=== PATIENT | female | born 1945 | race Caucasian/White ===

== ENCOUNTER 2019-12-22 14:52 | Inpatient (IN) | payer MEDICARE ==
[~2019-12-22] VITALS: Ht 157.5 cm; Wt 55.5 kg
[~2019-12-22 14:52] MED LIST: ALBU2.5V NEB; ALEN70TA6 PO; AMOX1TAB64 PO; ATOR10TA9 PO; CEPH-368 PO; CHOL10003 PO; FURO20TA3 PO; FURO80TA3 PO; GABA-827 PO; GABA600T7 PO; GLIP10TA13 PO; GLIP5TAB10 PO; HYDR-3245 PO; INSU100I11 SC; IPRA0.2S35 INH; MECL-101 PO; MELA1TAB9 PO; METF500T17 PO; METO-95 PO; METO200T47 PO; NPH,100V SC; QUET25TA5 PO; QUET25TA7 PO; RIVA1TAB PO; RIVA20TA PO; TRAZ-175 PO; URSO250T9 PO; URSO500T9 PO; VENL37.58 PO
--- NOTE | 2019-12-22 15:27 | NUR ---
First contact with pt. Pt c/o generalized weakness x2 days, denies other sx, denies recent sick contacts. Pt A&O to self, place, and date. Pt arousable to her name being called but appears very drowsy and weak when standing to change her clothes. Pt placed in gown, positioned for comfort in bed. Continuous heart, oxygen and BP monitors applied, all safety measures observed. Pt's son at bedside for support, POC discussed.
--- NOTE | 2019-12-22 15:30 | NUR ---
Pt's O2 sat on RA 85%. Pt encouraged to deep breathe and 2L O2 via NC applied with O2 sat increase to 94%.
[2019-12-22 15:41] LABS: BASOPHILS # (AUTO) 0.07 x10^3/uL (0-0.1); BASOPHILS % (AUTO) 1 % (0-1); EOSINOPHILS % (AUTO) 0 % (1-7); LYMPHOCYTES % (AUTO) 13 % (22-44); MD NO; MEAN CORPUSCULAR HEMOGLOBIN 27.4 pg (27.0-34.8); MEAN CORPUSCULAR HGB CONC 31.9 g/dL (32.4-35.8); MEAN CORPUSCULAR VOLUME 86.1 fL (80-100); MEAN PLATELET VOLUME 9.3 fL (7.4-10.4); MONOCYTES # (AUTO) 0.36 x10^3/uL (0.2-0.8); MONOCYTES % (AUTO) 3 % (2-9); NEUTROPHILS # (AUTO) 10.89 x10^3/uL (1.8-6.8); NEUTROPHILS % (AUTO) 84 % (42-75); PLATELET COUNT 122 x10^3/uL (130-400); RED BLOOD COUNT 4.09 x10^6/uL (3.82-5.3); RED CELL DISTRIBUTION WIDTH 15.8 % (9.6-15.2)
[2019-12-22 15:47] LABS: ALBUMIN 2.7 g/dL (3.4-5.0); ANION GAP 8 mmol/L (5-15); CALCIUM 8.5 mg/dL (8.5-10.1); CHLORIDE 100 mmol/L (98-107); CREATININE 1.82 mg/dL (0.55-1.02)
--- NOTE | 2019-12-22 15:55 | NUR ---
DR QUINTERO AT BEDSIDE TO EVAL PT. PT ON MONITORS, SR WITH PACED AT TIMES PER MONITOR. NO ACUTE DISTRESS NOTED. PTS SON AT BEDSIDE.
[2019-12-22] MEDS ORDERED: INSU100V37 SQ (16:01)
[2019-12-22] MEDS ORDERED: MECL-101 PO ×2 (16:01→16:06)
[2019-12-22] MEDS ORDERED: MELA5TAB14 PO (16:01)
--- NOTE | 2019-12-22 16:23 | NUR ---
MINI CATH COMPLETE AFTER EXPLAINING TO PT. PT TAMMIE WELL. PT AND PTS SON UPDATED ON POC.
[2019-12-22 16:40] LABS: MICROSCOPIC INDICATED
[2019-12-22] MEDS ORDERED: AZITHROMYCIN 500 MG in SODIUM CHLORIDE 0.9% 250 ML IV ONE (17:00)
[2019-12-22] MEDS ORDERED: CEFTRIAXONE PMX 1GM/50ML 50 ML IVPB ONE (17:00)
--- NOTE | 2019-12-22 17:30 | NUR ---
IV ABX STARTED. BLOOD CULTURES X2 IN LAB. PT PROVIDED WITH SIPS OF WATER. NO OTHER NEEDS EXPRESSED AT THIS TIME. WAITING FOR FURTHER DISPOSITION.
[2019-12-22] MEDS ORDERED: ESZO3TAB28 PO (18:27)
--- NOTE | 2019-12-22 18:27 | NUR ---
PT ASSISTED TO BSC. WEAK, SBA. TAMMIE WELL. SR PER MONITOR. PTS SON SHOWED RN PHONE WITH RX FOR LUNESTA (INFO NOT PREVIOUSLY PROVIDED) FOR SLEEP. RX PRESCRIBED BY PAIN MED MD. PT AND PTS SON AWARE OF WAITING FOR ROOM ASSIGNMEN.
[2019-12-22] MEDS ORDERED: ONDANSETRON ODT 4 MG PO PRN (18:30)
[2019-12-22] MEDS ORDERED: POLYETHYLENE GLYCOL 17 GM PACKET PO PRN (18:30)
[2019-12-22] MEDS ORDERED: HYDROcodone/APAP 10/325 MG TABLET PO PRN (18:30)
[2019-12-22] MEDS ORDERED: ALENDRONATE 70 MG TABLET PO SCH (18:30)
[2019-12-22] MEDS ORDERED: FLUCONAZOLE 200 MG/100 ML 100 ML IV ONE (18:30)
[2019-12-22] MEDS ORDERED: BISACODYL 10 MG SUPP PR PRN (18:30)
--- NOTE | 2019-12-22 18:49 | NUR ---
REPORT TO THANIA FRANK
[2019-12-22] MEDS: SODIUM CHLORIDE 0.9% 1,000 ML IV SCH (19:48)
[2019-12-22] MEDS: ATORVASTATIN 20 MG TABLET PO SCH (21:00)
[2019-12-22] MEDS ORDERED: MELATONIN 5 MG TABLET PO SCH (21:00)
[2019-12-22] MEDS ORDERED: GABAPENTIN 300 MG CAPSULE PO SCH (21:00)
[2019-12-22] MEDS: INSULIN LISPRO 100 UNITS/ML, PEN SQ-INSULIN SCH (21:00)
[2019-12-22] MEDS ORDERED: GABAPENTIN 100 MG CAPSULE PO SCH (21:00)
[2019-12-22] MEDS ORDERED: QUETIAPINE 25MG TABLET PO SCH (21:00)
--- NOTE | 2019-12-22 21:26 | NUR ---
PT SLEEPING ON HER BACK ON GURNEY, VSS AND IMPROVING. AWAITING ROOM TO BE CLEAN FOR ADMIT. WILL CONT TO MONITOR.
[2019-12-22] MEDS ORDERED: ALBUTEROL HFA 90 MCG/SPRAY INH PRN (22:30)
[2019-12-22 23:18] VITALS: BP 136/71
[2019-12-22 23:59] VITALS: BP 128/66
[2019-12-23] MEDS: URSODIOL 250 MG TABLET PO SCH ×2 (00:42→23:41)
[2019-12-23] MEDS: TRAZODONE 100MG TABLET PO SCH ×2 (00:43→23:41)
[2019-12-23 01:09] VITALS: BP 128/66
[2019-12-23] MEDS: SODIUM CHLORIDE 0.9% 1,000 ML IV SCH ×2 (04:11→15:00)
[2019-12-23 06:09] VITALS: BP 93/54
[2019-12-23] MEDS: INSULIN LISPRO 100 UNITS/ML, PEN SQ-INSULIN SCH ×4 (07:00→21:00)
[2019-12-23 07:54] LABS: CHLORIDE,URINE RANDOM 40 mmol/L; POTASSIUM,URINE RANDOM 20 mmol/L; SODIUM,URINE RANDOM 45 mmol/L
[2019-12-23] MEDS: RIVAROXABAN 20 MG TABLET PO SCH (08:00)
[2019-12-23 08:26] LABS: ANION GAP 7 mmol/L (5-15); CALCIUM 8.7 mg/dL (8.5-10.1); CHLORIDE 107 mmol/L (98-107); CREATININE 1.26 mg/dL (0.55-1.02)
[2019-12-23] MEDS: METOPROLOL SUCCINATE 100 MG TAB.ER.24H PO SCH (08:42)
[2019-12-23] MEDS: VENLAFAXINE XR 37.5MG CAP.ER.24H PO SCH (08:48)
[2019-12-23] MEDS: SENNA/DOCUSATE TABLET PO SCH (08:49)
[2019-12-23] MEDS: CHOLECALCIFEROL 1,000 UNIT TABLET PO SCH (08:49)
[2019-12-23 08:52] LABS: MEAN CORPUSCULAR HEMOGLOBIN 27.7 pg (27.0-34.8); MEAN CORPUSCULAR HGB CONC 32.1 g/dL (32.4-35.8); MEAN CORPUSCULAR VOLUME 86.3 fL (80-100); MEAN PLATELET VOLUME 9.4 fL (7.4-10.4); PLATELET COUNT 99 x10^3/uL (130-400); RED BLOOD COUNT 3.77 x10^6/uL (3.82-5.3); RED CELL DISTRIBUTION WIDTH 15.7 % (9.6-15.2)
[2019-12-23 08:53] LABS: BASOPHILS # (AUTO) 0.08 x10^3/uL (0-0.1); BASOPHILS % (AUTO) 1 % (0-1); EOSINOPHILS # (AUTO) 0.09 x10^3/uL (0-0.4); EOSINOPHILS % (AUTO) 1 % (1-7); LYMPHOCYTES # (AUTO) 1.93 x10^3/uL (1-3.4); LYMPHOCYTES % (AUTO) 24 % (22-44); MD SCAN; MONOCYTES # (AUTO) 0.35 x10^3/uL (0.2-0.8); MONOCYTES % (AUTO) 4 % (2-9); NEUTROPHILS # (AUTO) 5.74 x10^3/uL (1.8-6.8); NEUTROPHILS % (AUTO) 70 % (42-75)
[2019-12-23] MEDS ORDERED: QUETIAPINE 25MG TABLET PO PRN (09:30)
[2019-12-23 12:37] VITALS: BP 137/80
[2019-12-23] MEDS ORDERED: CEFTRIAXONE PMX 1GM/50ML 50 ML IV SCH (17:30)
[2019-12-23] MEDS ORDERED: AZITHROMYCIN 500 MG in SODIUM CHLORIDE 0.9% 250 ML IV SCH (18:00)
[2019-12-23 19:49] VITALS: BP 136/73
[2019-12-23] MEDS ORDERED: FLUCONAZOLE 100MG/50ML 100 MG in BAG 1 EACH IV SCH (22:00)
[2019-12-23] MEDS: ATORVASTATIN 20 MG TABLET PO SCH (23:41)
[2019-12-24 01:36] VITALS: BP 122/68
[2019-12-24] MEDS: INSULIN LISPRO 100 UNITS/ML, PEN SQ-INSULIN SCH ×2 (07:00→11:00)
[2019-12-24] MEDS: METOPROLOL SUCCINATE 100 MG TAB.ER.24H PO SCH (08:25)
[2019-12-24] MEDS: VENLAFAXINE XR 37.5MG CAP.ER.24H PO SCH (08:25)
[2019-12-24] MEDS: CHOLECALCIFEROL 1,000 UNIT TABLET PO SCH (08:25)
[2019-12-24] MEDS: RIVAROXABAN 20 MG TABLET PO SCH (08:25)
[2019-12-24] MEDS: SENNA/DOCUSATE TABLET PO SCH (08:26)
[2019-12-24 08:27] VITALS: BP 171/74
[2019-12-24 08:43] LABS: ANION GAP 4 mmol/L (5-15); CALCIUM 9.2 mg/dL (8.5-10.1); CHLORIDE 112 mmol/L (98-107); CREATININE 0.88 mg/dL (0.55-1.02)
[2019-12-24 12:06] VITALS: BP 137/72
[2019-12-24] MEDS ORDERED: AZIT500T PO (12:49)
[2019-12-24] MEDS ORDERED: CEFD300C37 PO (12:49)
[2019-12-24 14:45] VITALS: BP 162/80
== END 2019-12-24 15:30 | disposition home or self-care (01) | DRG 871 ==
LOC: ED 15:51 → EDIP 18:11 → 3N 23:11 → DCLOUNGE 12-24 15:14
PROVIDERS: ADMIT Family Medicine; ATTEND Hospitalist
PROC: 0T9B70Z Drainage of Bladder with Drainage Device, Via Natural or Artificial Opening (ICD-10-PCS; principal; 2019-12-22)
DX: A41.89 Other specified sepsis (principal); J15.9 Unspecified bacterial pneumonia; G92 Toxic encephalopathy; N17.0 Acute kidney failure with tubular necrosis; N39.0 Urinary tract infection, site not specified; J44.0 Chronic obstructive pulmonary disease with (acute) lower respiratory infection; D69.6 Thrombocytopenia, unspecified; E11.9 Type 2 diabetes mellitus without complications; E86.0 Dehydration; F03.90 Unspecified dementia, unspecified severity, without behavioral disturbance, psychotic disturbance, mood disturbance, and anxiety; F32.9 Major depressive disorder, single episode, unspecified; G43.909 Migraine, unspecified, not intractable, without status migrainosus; G89.29 Other chronic pain; R33.9 Retention of urine, unspecified; T43.595A Adverse effect of other antipsychotics and neuroleptics, initial encounter; T42.6X5A Adverse effect of other antiepileptic and sedative-hypnotic drugs, initial encounter; I10 Essential (primary) hypertension; K21.9 Gastro-esophageal reflux disease without esophagitis; K74.3 Primary biliary cirrhosis; R09.02 Hypoxemia; M54.9 Dorsalgia, unspecified; K44.9 Diaphragmatic hernia without obstruction or gangrene; M81.0 Age-related osteoporosis without current pathological fracture; Z79.4 Long term (current) use of insulin; Z86.718 Personal history of other venous thrombosis and embolism; Z95.0 Presence of cardiac pacemaker; Z90.49 Acquired absence of other specified parts of digestive tract; Z79.01 Long term (current) use of anticoagulants; Z88.1 Allergy status to other antibiotic agents; Z88.5 Allergy status to narcotic agent; Z91.041 Radiographic dye allergy status; Y92.89 Other specified places as the place of occurrence of the external cause
CPT/HCPCS: 36415; 71045; 76770; 80048; 81001; 82040; 82436; 82570; 82947; 82962; 83036; 83605; 84133; 84145; 84300; 85025; 87040; 87086; 93005; 96365; 96367; 96375; 99285; G0378; J0456; J0696; J1450; J1815; J7030; J7050

== ENCOUNTER 2020-01-17 18:36 | Inpatient (IN) | payer MEDICARE ==
[~2020-01-17] VITALS: Ht 157.5 cm; Wt 56.2 kg
[~2020-01-17 18:36] MED LIST changes: +AZIT500T PO; +CEFD300C37 PO; +ESZO3TAB28 PO; +INSU100V37 SQ; +MELA5TAB14 PO
--- NOTE | 2020-01-17 18:53 | NUR ---
RECEIVED REPORT, ASSUMED CARE OF A 74 YEAR OLD FEMALE TO ED VIA [facility] FOR LEFT HIP PAIN 2/2 FALL DOWN STAIRS. SHE DENIES LOC OR HITTING HER HEAD. ED WORKUP INITIATED. WILL CONTINUE TO MONITOR.
[2020-01-17] MEDS ORDERED: HYDROmorphone 2 MG/ML, 1ML IVPush PRN ×2 (19:00→22:30)
[2020-01-17] MEDS ORDERED: ONDANSETRON 2MG/ML, 2ML IVPush ONE (19:00)
[2020-01-17] MEDS ORDERED: SODIUM CHLORIDE FLUSH 10ML SYR IVF ONE ×2 (19:00→20:30)
--- NOTE | 2020-01-17 19:12 | NUR ---
report given to ZAC Keita
[2020-01-17] MEDS ORDERED: HYDROmorphone 1 MG/ML, 1ML INJ ONE ×2 (19:18→22:40)
[2020-01-17] MEDS ORDERED: ONDANSETRON 2MG/ML, 2ML ONE (19:18)
[2020-01-17 20:31] LABS: BASOPHILS % (AUTO) 1 % (0-1); EOSINOPHILS % (AUTO) 1 % (1-7); LYMPHOCYTES % (AUTO) 24 % (22-44); MEAN CORPUSCULAR HGB CONC 32.7 g/dL (32.4-35.8); MEAN PLATELET VOLUME 8.6 fL (7.4-10.4); MONOCYTES % (AUTO) 5 % (2-9); NEUTROPHILS % (AUTO) 70 % (42-75); PLATELET COUNT 106 x10^3/uL (130-400); RED BLOOD COUNT 4.16 x10^6/uL (3.82-5.3); RED CELL DISTRIBUTION WIDTH 16.4 % (9.6-15.2)
--- NOTE | 2020-01-17 20:33 | NUR ---
CHARLINE OTT ([id number]) REQUESTING AN UPDATE.
[2020-01-17 20:34] LABS: ALANINE AMINOTRANSFERASE 33 U/L (12-78); ALBUMIN 3.4 g/dL (3.4-5.0); ANION GAP 7 mmol/L (5-15); CALCIUM 9.3 mg/dL (8.5-10.1); CHLORIDE 107 mmol/L (98-107); CREATININE 1.09 mg/dL (0.55-1.02)
[2020-01-17 20:36] LABS: ALKALINE PHOSPHATASE 276 U/L (45-117); BILIRUBIN,TOTAL 0.8 mg/dL (0.2-1.0); TOTAL PROTEIN 8.1 g/dL (6.4-8.2)
[2020-01-17 20:45] LABS: MD NO
[2020-01-17 20:48] LABS: INTERNATIONAL NORMALIZED RATIO 1.12 (0.93-1.1); PROTHROMBIN TIME 11.5 Seconds (9.6-11.5)
[2020-01-17] MEDS ORDERED: SODIUM CHLORIDE FLUSH 10ML SYR IVF PRN (22:30)
[2020-01-17] MEDS ORDERED: HYDROmorphone 1 MG/ML, 1ML INJ IVPush PRN (22:30)
[2020-01-17] MEDS ORDERED: ONDANSETRON 2MG/ML, 2ML IVPush PRN (22:30)
--- NOTE | 2020-01-17 23:08 | NUR ---
Rober Maria (son) contact info:
--- NOTE | 2020-01-17 23:49 | NUR ---
report given to Briana Cruz. Was notified patient will be going into 459.
[2020-01-18] VITALS (7 sets, daily range): BP systolic 107–178; BP diastolic 57–91
[2020-01-18] MEDS: URSODIOL 250 MG TABLET PO SCH ×2 (01:33→22:49)
[2020-01-18] MEDS: TRAZODONE 100MG TABLET PO SCH ×2 (01:34→22:49)
[2020-01-18] MEDS: INSULIN LISPRO 100 UNITS/ML, PEN SQ-INSULIN SCH ×5 (02:29→22:48)
[2020-01-18 05:47] LABS: ANION GAP 9 mmol/L (5-15); CALCIUM 8.8 mg/dL (8.5-10.1); CHLORIDE 107 mmol/L (98-107)
[2020-01-18 05:48] LABS: CREATININE 1.22 mg/dL (0.55-1.02)
[2020-01-18 05:57] LABS: BASOPHILS % (AUTO) 1 % (0-1); EOSINOPHILS % (AUTO) 0 % (1-7); LYMPHOCYTES % (AUTO) 27 % (22-44); MEAN CORPUSCULAR HEMOGLOBIN 28.3 pg (27.0-34.8); MEAN CORPUSCULAR HGB CONC 32.9 g/dL (32.4-35.8); MEAN PLATELET VOLUME 9.1 fL (7.4-10.4); MONOCYTES % (AUTO) 6 % (2-9); NEUTROPHILS % (AUTO) 66 % (42-75); PLATELET COUNT 90 x10^3/uL (130-400); RED BLOOD COUNT 3.65 x10^6/uL (3.82-5.3); RED CELL DISTRIBUTION WIDTH 16.3 % (9.6-15.2)
[2020-01-18 06:20] LABS: MD NO
[2020-01-18] MEDS: VENLAFAXINE XR 37.5MG CAP.ER.24H PO SCH (08:04)
[2020-01-18] MEDS ORDERED: SENNA/DOCUSATE TABLET PO SCH (09:00)
[2020-01-18] MEDS ORDERED: KETOROLAC 30 MG/1 ML ONE (10:46)
[2020-01-18] MEDS ORDERED: ALBUTEROL-IPRATROPIUM MDI INH INH PRN (15:00)
[2020-01-18] MEDS ORDERED: LACTATED RINGERS 1,000 ML IV SCH (15:00)
[2020-01-18] MEDS ORDERED: TRANEXAMIC ACID 100 MG/ML, 10ML ONE (16:24)
[2020-01-18] MEDS ORDERED: FENTANYL PF 100 MCG/2ML ONE ×2 (16:29→17:18)
[2020-01-18] MEDS ORDERED: LIDOCAINE-MPF 2% ,5ML ONE (16:31)
[2020-01-18] MEDS ORDERED: SODIUM CHLORIDE 0.9% PF 10ML ONE (16:31)
[2020-01-18] MEDS ORDERED: DEXAMETHASONE 4 MG/ML, 1ML ONE (16:35)
[2020-01-18] MEDS ORDERED: CEFAZOLIN 1,000 MG ONE (16:35)
[2020-01-18] MEDS ORDERED: ONDANSETRON 2MG/ML, 2ML ONE (16:35)
[2020-01-18] MEDS ORDERED: SUCCINYLCHOLINE 20 MG/ML, 10ML ONE (16:35)
[2020-01-18] MEDS ORDERED: PROPOFOL 10 MG/ML, 20ML ONE (16:35)
[2020-01-18] MEDS ORDERED: FENTANYL PF 100 MCG/2ML IV PRN (17:30)
[2020-01-18] MEDS ORDERED: hydrALAzine 20 MG/ML, 1ML IV PRN (17:30)
[2020-01-18] MEDS ORDERED: OXYcodone 5 MG/5 ML ORAL.SOL UDC PO PRN (17:30)
[2020-01-18] MEDS ORDERED: HYDROmorphone 1 MG/ML, 1ML INJ IVPush PRN (17:30)
[2020-01-18] MEDS ORDERED: ONDANSETRON 2MG/ML, 2ML IVPush PRN (17:30)
[2020-01-18] MEDS ORDERED: PROMETHAZINE 25 MG/ML, 1ML IVPush PRN (17:30)
[2020-01-18] MEDS ORDERED: LABETALOL 5MG/ML, 20ML ONE (17:57)
[2020-01-18] MEDS: LABETALOL 5MG/ML, 20ML IV PRN ×2 (18:12→18:23)
[2020-01-18] MEDS: ATORVASTATIN 20 MG TABLET PO SCH (22:50)
[2020-01-19] MEDS ORDERED: D5%-LACTATED RINGERS 1,000 ML IV SCH (01:00)
[2020-01-19] MEDS ORDERED: ALUMINUM/MAG/SIMETHICONE 30 ML UDC PO PRN (01:00)
[2020-01-19] MEDS ORDERED: SENNA/DOCUSATE TABLET PO PRN (01:00)
[2020-01-19] MEDS ORDERED: ACETAMINOPHEN 325 MG TABLET PO PRN (01:00)
[2020-01-19] MEDS ORDERED: ONDANSETRON 2MG/ML, 2ML IV PRN (01:00)
[2020-01-19] MEDS ORDERED: MAGNESIUM HYDROXIDE 8%, 30ML UDC PO PRN (01:00)
[2020-01-19] MEDS ORDERED: BISACODYL 10 MG SUPP PR PRN (01:00)
[2020-01-19 01:23] VITALS: BP 122/67
[2020-01-19] MEDS: CEFAZOLIN PMX 2GM/50ML 50 ML IVPB SCH ×2 (02:59→14:10)
[2020-01-19] MEDS: OXYcodone 5 MG/5 ML ORAL.SOL UDC PO PRN ×2 (03:24→09:34)
[2020-01-19] MEDS ORDERED: LACTATED RINGERS 1,000 ML IV SCH (03:30)
[2020-01-19 04:05] VITALS: BP 143/76
[2020-01-19 05:30] LABS: BASOPHILS % (AUTO) 0 % (0-1); EOSINOPHILS % (AUTO) 0 % (1-7); LYMPHOCYTES % (AUTO) 22 % (22-44); MEAN CORPUSCULAR HEMOGLOBIN 28.5 pg (27.0-34.8); MEAN CORPUSCULAR HGB CONC 33.1 g/dL (32.4-35.8); MEAN PLATELET VOLUME 8.9 fL (7.4-10.4); MONOCYTES % (AUTO) 6 % (2-9); NEUTROPHILS % (AUTO) 71 % (42-75); PLATELET COUNT 73 x10^3/uL (130-400); RED BLOOD COUNT 3.09 x10^6/uL (3.82-5.3); RED CELL DISTRIBUTION WIDTH 15.9 % (9.6-15.2)
[2020-01-19 05:37] LABS: CHLORIDE 105 mmol/L (98-107)
[2020-01-19 05:45] LABS: ALANINE AMINOTRANSFERASE 23 U/L (12-78); ALBUMIN 2.8 g/dL (3.4-5.0); ALKALINE PHOSPHATASE 200 U/L (45-117); ANION GAP 6 mmol/L (5-15); BILIRUBIN,TOTAL 0.6 mg/dL (0.2-1.0); CALCIUM 8.6 mg/dL (8.5-10.1); CREATININE 1.52 mg/dL (0.55-1.02); TOTAL PROTEIN 6.7 g/dL (6.4-8.2)
[2020-01-19 06:10] LABS: MD NO
[2020-01-19] MEDS: INSULIN LISPRO 100 UNITS/ML, PEN SQ-INSULIN SCH ×4 (07:27→22:17)
[2020-01-19 07:53] VITALS: BP 127/68
[2020-01-19 08:08] LABS: MICROSCOPIC INDICATED
[2020-01-19] MEDS ORDERED: METOPROLOL SUCCINATE 100 MG TAB.ER.24H PO SCH (09:00)
[2020-01-19] MEDS ORDERED: PROMETHAZINE 25 MG/ML, 1ML IM PRN (09:30)
[2020-01-19] MEDS ORDERED: PHARMACY MAY ADJ FOR RENAL FX MC PRN (09:30)
[2020-01-19] MEDS: MULTIVITAMINS/MINERALS TABLET PO SCH (09:33)
[2020-01-19] MEDS: DOCUSATE 100 MG CAPSULE PO SCH ×2 (09:33→21:36)
[2020-01-19] MEDS: CHOLECALCIFEROL 1,000 UNIT TABLET PO SCH (09:33)
[2020-01-19] MEDS: SODIUM CHLORIDE 0.9% 1,000 ML IV SCH (11:00)
[2020-01-19] MEDS ORDERED: SODIUM CHLORIDE 0.9%, 500ML IVBOLUS ONE (11:00)
[2020-01-19] MEDS: VENLAFAXINE XR 37.5MG CAP.ER.24H PO SCH (11:14)
[2020-01-19] MEDS: FLUCONAZOLE 200 MG/100 ML 100 ML IV SCH (11:19)
[2020-01-19 12:47] VITALS: BP 144/76
[2020-01-19] MEDS: OXYcodone IR 5MG TABLET PO PRN ×2 (13:28→21:37)
[2020-01-19] MEDS: HEPARIN 5,000 UNITS/ML, 1ML SQ SCH (15:09)
[2020-01-19] MEDS: ATORVASTATIN 20 MG TABLET PO SCH (21:36)
[2020-01-19] MEDS: URSODIOL 250 MG TABLET PO SCH (21:36)
[2020-01-19 21:59] VITALS: BP 145/88
[2020-01-20] MEDS: HEPARIN 5,000 UNITS/ML, 1ML SQ SCH ×3 (00:18→17:16)
[2020-01-20] MEDS: SODIUM CHLORIDE 0.9% 1,000 ML IV SCH (01:15)
[2020-01-20 02:55] VITALS: BP 164/88
[2020-01-20] MEDS: OXYcodone IR 5MG TABLET PO PRN ×3 (03:38→17:42)
[2020-01-20 05:48] LABS: BASOPHILS % (AUTO) 0 % (0-1); EOSINOPHILS % (AUTO) 3 % (1-7); LYMPHOCYTES % (AUTO) 31 % (22-44); MEAN CORPUSCULAR HEMOGLOBIN 28.3 pg (27.0-34.8); MEAN PLATELET VOLUME 8.5 fL (7.4-10.4); MONOCYTES % (AUTO) 7 % (2-9); NEUTROPHILS % (AUTO) 59 % (42-75); PLATELET COUNT 77 x10^3/uL (130-400); RED BLOOD COUNT 2.83 x10^6/uL (3.82-5.3); RED CELL DISTRIBUTION WIDTH 15.8 % (9.6-15.2)
[2020-01-20 06:02] LABS: CALCIUM 8.4 mg/dL (8.5-10.1); CHLORIDE 112 mmol/L (98-107)
[2020-01-20 06:07] LABS: ALANINE AMINOTRANSFERASE 14 U/L (12-78); ALBUMIN 2.5 g/dL (3.4-5.0); ALKALINE PHOSPHATASE 189 U/L (45-117); ANION GAP 6 mmol/L (5-15); BILIRUBIN,TOTAL 0.7 mg/dL (0.2-1.0); TOTAL PROTEIN 6.1 g/dL (6.4-8.2)
[2020-01-20 06:08] LABS: MD NO
[2020-01-20] MEDS: INSULIN LISPRO 100 UNITS/ML, PEN SQ-INSULIN SCH ×4 (07:00→22:25)
[2020-01-20 08:28] VITALS: BP 179/102
[2020-01-20] MEDS: CHOLECALCIFEROL 1,000 UNIT TABLET PO SCH (08:59)
[2020-01-20] MEDS: MULTIVITAMINS/MINERALS TABLET PO SCH (08:59)
[2020-01-20] MEDS: METOPROLOL SUCCINATE 50 MG TAB.ER.24H PO SCH ×2 (08:59→15:33)
[2020-01-20] MEDS: DOCUSATE 100 MG CAPSULE PO SCH ×2 (08:59→21:23)
[2020-01-20] MEDS: VENLAFAXINE XR 37.5MG CAP.ER.24H PO SCH (08:59)
[2020-01-20 09:07] LABS: TROPONIN I < 0.015 ng/mL (0.000-0.045)
[2020-01-20] MEDS ORDERED: OMNIPAQUE 350 MG/ML, 100ML BOTTLE ONE (09:59)
[2020-01-20 10:07] VITALS: BP 167/77
[2020-01-20] MEDS ORDERED: FUROSEMIDE 20 MG/2 ML IV ONE (11:30)
[2020-01-20] MEDS: FLUCONAZOLE 200 MG/100 ML 100 ML IV SCH (12:05)
[2020-01-20 13:37] VITALS: BP 186/75
[2020-01-20] MEDS: HYDROmorphone 2 MG/ML, 1ML IVPush PRN ×2 (13:51→22:58)
[2020-01-20 14:33] VITALS: BP 160/70
[2020-01-20 15:29] LABS: TROPONIN I < 0.015 ng/mL (0.000-0.045)
[2020-01-20] MEDS ORDERED: hydrALAzine 20 MG/ML, 1ML IV PRN (16:00)
[2020-01-20 20:21] VITALS: BP 155/70
[2020-01-20] MEDS: ATORVASTATIN 20 MG TABLET PO SCH (21:23)
[2020-01-20 21:41] LABS: TROPONIN I < 0.015 ng/mL (0.000-0.045)
[2020-01-20] MEDS: URSODIOL 250 MG TABLET PO SCH (23:09)
[2020-01-21] MEDS: HEPARIN 5,000 UNITS/ML, 1ML SQ SCH ×3 (00:19→16:08)
[2020-01-21 00:25] VITALS: BP 181/76
[2020-01-21] MEDS: LABETALOL 5MG/ML, 20ML IVPush PRN ×2 (00:42→16:07)
[2020-01-21 05:48] LABS: ALBUMIN 2.7 g/dL (3.4-5.0); ANION GAP 8 mmol/L (5-15); CHLORIDE 109 mmol/L (98-107)
[2020-01-21 05:52] LABS: ALANINE AMINOTRANSFERASE 17 U/L (12-78); ALKALINE PHOSPHATASE 258 U/L (45-117); BILIRUBIN,TOTAL 1.1 mg/dL (0.2-1.0); TOTAL PROTEIN 6.9 g/dL (6.4-8.2)
[2020-01-21 05:55] LABS: BASOPHILS % (AUTO) 1 % (0-1); EOSINOPHILS % (AUTO) 3 % (1-7); LYMPHOCYTES % (AUTO) 33 % (22-44); MEAN CORPUSCULAR HEMOGLOBIN 28.4 pg (27.0-34.8); MONOCYTES % (AUTO) 7 % (2-9); NEUTROPHILS % (AUTO) 56 % (42-75); PLATELET COUNT 102 x10^3/uL (130-400); RED BLOOD COUNT 3.15 x10^6/uL (3.82-5.3); RED CELL DISTRIBUTION WIDTH 16.1 % (9.6-15.2)
[2020-01-21 06:14] LABS: MD NO
[2020-01-21] MEDS: HYDROmorphone 2 MG/ML, 1ML IVPush PRN (06:52)
[2020-01-21] MEDS: INSULIN LISPRO 100 UNITS/ML, PEN SQ-INSULIN SCH ×4 (07:51→22:20)
[2020-01-21] MEDS ORDERED: LACTULOSE 20 GM/30 ML UDC PO PRN (09:00)
[2020-01-21 09:44] VITALS: BP 175/80
[2020-01-21] MEDS: METOPROLOL SUCCINATE 50 MG TAB.ER.24H PO SCH (09:51)
[2020-01-21] MEDS: CHOLECALCIFEROL 1,000 UNIT TABLET PO SCH (09:51)
[2020-01-21] MEDS: VENLAFAXINE XR 37.5MG CAP.ER.24H PO SCH (09:51)
[2020-01-21] MEDS: DOCUSATE 100 MG CAPSULE PO SCH ×2 (09:52→22:09)
[2020-01-21] MEDS: MULTIVITAMINS/MINERALS TABLET PO SCH (09:52)
[2020-01-21] MEDS: AMLODIPINE 5 MG TABLET PO SCH (10:04)
[2020-01-21] MEDS: OXYcodone IR 5MG TABLET PO PRN ×2 (10:05→16:08)
[2020-01-21] MEDS: FLUCONAZOLE 200 MG/100 ML 100 ML IV SCH (11:14)
[2020-01-21 13:39] VITALS: BP 194/80
[2020-01-21 22:02] VITALS: BP 145/67
[2020-01-21] MEDS: FLUCONAZOLE 200 MG TABLET PO SCH (22:09)
[2020-01-21] MEDS: URSODIOL 250 MG TABLET PO SCH (22:10)
[2020-01-21] MEDS: ATORVASTATIN 20 MG TABLET PO SCH (22:10)
[2020-01-22] MEDS: HEPARIN 5,000 UNITS/ML, 1ML SQ SCH (00:27)
[2020-01-22 01:35] VITALS: BP 149/68
[2020-01-22 05:02] LABS: BASOPHILS % (AUTO) 1 % (0-1); EOSINOPHILS % (AUTO) 3 % (1-7); LYMPHOCYTES % (AUTO) 39 % (22-44); MEAN CORPUSCULAR HEMOGLOBIN 28.4 pg (27.0-34.8); MEAN CORPUSCULAR HGB CONC 32.9 g/dL (32.4-35.8); MEAN PLATELET VOLUME 7.9 fL (7.4-10.4); MONOCYTES % (AUTO) 6 % (2-9); NEUTROPHILS % (AUTO) 51 % (42-75); PLATELET COUNT 114 x10^3/uL (130-400); RED BLOOD COUNT 2.81 x10^6/uL (3.82-5.3); RED CELL DISTRIBUTION WIDTH 15.7 % (9.6-15.2)
[2020-01-22 05:11] LABS: ALBUMIN 2.5 g/dL (3.4-5.0); ANION GAP 8 mmol/L (5-15); CALCIUM 8.3 mg/dL (8.5-10.1); CHLORIDE 107 mmol/L (98-107)
[2020-01-22 05:12] LABS: MD NO
[2020-01-22 05:15] LABS: ALANINE AMINOTRANSFERASE 20 U/L (12-78); ALKALINE PHOSPHATASE 270 U/L (45-117); BILIRUBIN,TOTAL 1.1 mg/dL (0.2-1.0); CREATININE 0.91 mg/dL (0.55-1.02); TOTAL PROTEIN 6.3 g/dL (6.4-8.2)
[2020-01-22 06:49] VITALS: BP 147/61
[2020-01-22] MEDS: INSULIN LISPRO 100 UNITS/ML, PEN SQ-INSULIN SCH ×4 (07:31→21:22)
[2020-01-22] MEDS: DOCUSATE 100 MG CAPSULE PO SCH ×2 (09:27→19:56)
[2020-01-22] MEDS: METOPROLOL SUCCINATE 50 MG TAB.ER.24H PO SCH (09:27)
[2020-01-22] MEDS: VENLAFAXINE XR 37.5MG CAP.ER.24H PO SCH (09:27)
[2020-01-22] MEDS: CHOLECALCIFEROL 1,000 UNIT TABLET PO SCH (09:27)
[2020-01-22] MEDS: RIVAROXABAN 20 MG TABLET PO SCH (09:28)
[2020-01-22] MEDS: AMLODIPINE 5 MG TABLET PO SCH (09:28)
[2020-01-22] MEDS: MULTIVITAMINS/MINERALS TABLET PO SCH (09:28)
[2020-01-22] MEDS: OXYcodone IR 5MG TABLET PO PRN (12:14)
[2020-01-22 12:35] VITALS: BP 122/62
[2020-01-22] MEDS: ATORVASTATIN 20 MG TABLET PO SCH (19:56)
[2020-01-22 20:02] VITALS: BP 138/65
[2020-01-22] MEDS: FLUCONAZOLE 200 MG TABLET PO SCH (21:19)
[2020-01-22] MEDS: URSODIOL 250 MG TABLET PO SCH (21:21)
[2020-01-23 00:31] VITALS: BP 144/66
[2020-01-23] MEDS: INSULIN LISPRO 100 UNITS/ML, PEN SQ-INSULIN SCH ×4 (07:12→22:48)
[2020-01-23 07:45] VITALS: BP 150/69
[2020-01-23] MEDS: AMLODIPINE 5 MG TABLET PO SCH (10:01)
[2020-01-23] MEDS: DOCUSATE 100 MG CAPSULE PO SCH ×2 (10:01→22:11)
[2020-01-23] MEDS: RIVAROXABAN 20 MG TABLET PO SCH (10:01)
[2020-01-23] MEDS: MULTIVITAMINS/MINERALS TABLET PO SCH (10:01)
[2020-01-23] MEDS: CHOLECALCIFEROL 1,000 UNIT TABLET PO SCH (10:01)
[2020-01-23] MEDS: VENLAFAXINE XR 37.5MG CAP.ER.24H PO SCH (10:01)
[2020-01-23] MEDS: METOPROLOL SUCCINATE 50 MG TAB.ER.24H PO SCH (10:02)
[2020-01-23 14:03] VITALS: BP 123/67
[2020-01-23 20:21] VITALS: BP 111/69
[2020-01-23] MEDS: ATORVASTATIN 20 MG TABLET PO SCH (22:11)
[2020-01-23] MEDS: URSODIOL 250 MG TABLET PO SCH (22:11)
[2020-01-24 01:11] VITALS: BP 152/76
[2020-01-24 07:09] LABS: BASOPHILS % (AUTO) 1 % (0-1); EOSINOPHILS % (AUTO) 2 % (1-7); LYMPHOCYTES % (AUTO) 40 % (22-44); MEAN CORPUSCULAR HEMOGLOBIN 28.4 pg (27.0-34.8); MEAN PLATELET VOLUME 7.8 fL (7.4-10.4); MONOCYTES % (AUTO) 7 % (2-9); NEUTROPHILS % (AUTO) 51 % (42-75); PLATELET COUNT 123 x10^3/uL (130-400); RED BLOOD COUNT 3.01 x10^6/uL (3.82-5.3); RED CELL DISTRIBUTION WIDTH 16.2 % (9.6-15.2)
[2020-01-24 07:17] LABS: CALCIUM 8.7 mg/dL (8.5-10.1); CHLORIDE 107 mmol/L (98-107)
[2020-01-24 07:22] LABS: ALANINE AMINOTRANSFERASE 20 U/L (12-78); ALBUMIN 2.5 g/dL (3.4-5.0); ALKALINE PHOSPHATASE 263 U/L (45-117); ANION GAP 6 mmol/L (5-15); BILIRUBIN,TOTAL 0.9 mg/dL (0.2-1.0); CREATININE 0.73 mg/dL (0.55-1.02); TOTAL PROTEIN 6.5 g/dL (6.4-8.2)
[2020-01-24 07:25] LABS: MD NO
[2020-01-24] MEDS: INSULIN LISPRO 100 UNITS/ML, PEN SQ-INSULIN SCH ×4 (07:25→22:37)
[2020-01-24 07:36] VITALS: BP 156/71
[2020-01-24 08:44] LABS: MICROSCOPIC INDICATED
[2020-01-24] MEDS: MULTIVITAMINS/MINERALS TABLET PO SCH (08:46)
[2020-01-24] MEDS: DOCUSATE 100 MG CAPSULE PO SCH ×2 (08:46→22:26)
[2020-01-24] MEDS: CHOLECALCIFEROL 1,000 UNIT TABLET PO SCH (08:46)
[2020-01-24] MEDS: AMLODIPINE 5 MG TABLET PO SCH (08:46)
[2020-01-24] MEDS: METOPROLOL SUCCINATE 50 MG TAB.ER.24H PO SCH (08:46)
[2020-01-24] MEDS: RIVAROXABAN 20 MG TABLET PO SCH (08:46)
[2020-01-24] MEDS: VENLAFAXINE XR 37.5MG CAP.ER.24H PO SCH (08:46)
[2020-01-24 13:20] VITALS: BP 124/64
[2020-01-24] MEDS: CEFTRIAXONE PMX 1GM/50ML 50 ML IV SCH (13:26)
[2020-01-24 20:04] VITALS: BP 138/72
[2020-01-24] MEDS: ATORVASTATIN 20 MG TABLET PO SCH (22:26)
[2020-01-24] MEDS: URSODIOL 250 MG TABLET PO SCH (22:26)
[2020-01-25 01:38] VITALS: BP 131/75
[2020-01-25] MEDS: CEFTRIAXONE PMX 1GM/50ML 50 ML IV SCH ×3 (02:28→23:42)
[2020-01-25] MEDS: INSULIN LISPRO 100 UNITS/ML, PEN SQ-INSULIN SCH ×4 (07:22→21:23)
[2020-01-25] MEDS: CHOLECALCIFEROL 1,000 UNIT TABLET PO SCH (07:23)
[2020-01-25] MEDS: VENLAFAXINE XR 37.5MG CAP.ER.24H PO SCH (07:23)
[2020-01-25] MEDS: MULTIVITAMINS/MINERALS TABLET PO SCH (07:23)
[2020-01-25] MEDS: AMLODIPINE 5 MG TABLET PO SCH (07:23)
[2020-01-25] MEDS: RIVAROXABAN 20 MG TABLET PO SCH (07:23)
[2020-01-25] MEDS: DOCUSATE 100 MG CAPSULE PO SCH ×2 (07:24→21:23)
[2020-01-25] MEDS: METOPROLOL SUCCINATE 50 MG TAB.ER.24H PO SCH (07:24)
[2020-01-25 08:06] VITALS: BP 149/70
[2020-01-25 13:44] VITALS: BP 131/65
[2020-01-25] MEDS: OXYcodone IR 5MG TABLET PO PRN (18:15)
[2020-01-25 18:33] VITALS: BP 128/64
[2020-01-25] MEDS: ATORVASTATIN 20 MG TABLET PO SCH (21:23)
[2020-01-25] MEDS: URSODIOL 250 MG TABLET PO SCH (21:23)
[2020-01-26 00:20] VITALS: BP 130/65
[2020-01-26] MEDS: INSULIN LISPRO 100 UNITS/ML, PEN SQ-INSULIN SCH ×4 (07:00→20:16)
[2020-01-26 08:18] VITALS: BP 118/67
[2020-01-26] MEDS: CHOLECALCIFEROL 1,000 UNIT TABLET PO SCH (09:56)
[2020-01-26] MEDS: AMLODIPINE 5 MG TABLET PO SCH (09:56)
[2020-01-26] MEDS: METOPROLOL SUCCINATE 50 MG TAB.ER.24H PO SCH (09:56)
[2020-01-26] MEDS: DOCUSATE 100 MG CAPSULE PO SCH ×2 (09:56→20:25)
[2020-01-26] MEDS: VENLAFAXINE XR 37.5MG CAP.ER.24H PO SCH (09:57)
[2020-01-26] MEDS: MULTIVITAMINS/MINERALS TABLET PO SCH (09:57)
[2020-01-26] MEDS: RIVAROXABAN 20 MG TABLET PO SCH (09:57)
[2020-01-26] MEDS: CEFTRIAXONE PMX 1GM/50ML 50 ML IV SCH ×2 (12:28→23:57)
[2020-01-26 12:57] VITALS: BP 120/84
[2020-01-26 19:40] VITALS: BP 123/61
[2020-01-26] MEDS: URSODIOL 250 MG TABLET PO SCH (20:25)
[2020-01-26] MEDS: ATORVASTATIN 20 MG TABLET PO SCH (20:25)
[2020-01-27 00:19] VITALS: BP 150/72
[2020-01-27] MEDS: INSULIN LISPRO 100 UNITS/ML, PEN SQ-INSULIN SCH ×4 (07:00→20:57)
[2020-01-27] MEDS: METOPROLOL SUCCINATE 50 MG TAB.ER.24H PO SCH (07:28)
[2020-01-27] MEDS: MULTIVITAMINS/MINERALS TABLET PO SCH (07:28)
[2020-01-27] MEDS: AMLODIPINE 5 MG TABLET PO SCH (07:28)
[2020-01-27] MEDS: DOCUSATE 100 MG CAPSULE PO SCH ×2 (07:28→20:59)
[2020-01-27] MEDS: VENLAFAXINE XR 37.5MG CAP.ER.24H PO SCH (07:28)
[2020-01-27] MEDS: CHOLECALCIFEROL 1,000 UNIT TABLET PO SCH (07:28)
[2020-01-27] MEDS: RIVAROXABAN 20 MG TABLET PO SCH (07:28)
[2020-01-27 07:42] VITALS: BP 137/76
[2020-01-27] MEDS: CEFTRIAXONE PMX 1GM/50ML 50 ML IV SCH (11:43)
[2020-01-27 12:37] VITALS: BP 131/72
[2020-01-27] MEDS: OXYcodone IR 5MG TABLET PO PRN (13:09)
[2020-01-27 18:07] VITALS: BP 139/70
[2020-01-27] MEDS: URSODIOL 250 MG TABLET PO SCH (21:00)
[2020-01-27] MEDS: ATORVASTATIN 20 MG TABLET PO SCH (21:00)
[2020-01-28 00:23] VITALS: BP 137/71
[2020-01-28] MEDS: CEFTRIAXONE PMX 1GM/50ML 50 ML IV SCH ×2 (00:35→13:56)
[2020-01-28 05:55] LABS: CREATININE 0.67 mg/dL (0.55-1.02)
[2020-01-28] MEDS: INSULIN LISPRO 100 UNITS/ML, PEN SQ-INSULIN SCH ×4 (07:00→20:24)
[2020-01-28 07:59] VITALS: BP_SYST 159; BP_SYST 162; BP_DIAS 76
[2020-01-28] MEDS: METOPROLOL SUCCINATE 50 MG TAB.ER.24H PO SCH (08:32)
[2020-01-28] MEDS: DOCUSATE 100 MG CAPSULE PO SCH ×2 (08:33→20:26)
[2020-01-28] MEDS: CHOLECALCIFEROL 1,000 UNIT TABLET PO SCH (08:33)
[2020-01-28] MEDS: RIVAROXABAN 20 MG TABLET PO SCH (08:33)
[2020-01-28] MEDS: AMLODIPINE 5 MG TABLET PO SCH (08:33)
[2020-01-28] MEDS: VENLAFAXINE XR 37.5MG CAP.ER.24H PO SCH (08:34)
[2020-01-28] MEDS: MULTIVITAMINS/MINERALS TABLET PO SCH (08:34)
[2020-01-28] MEDS: OXYcodone IR 5MG TABLET PO PRN (12:15)
[2020-01-28 12:32] VITALS: BP 119/70
[2020-01-28 19:25] VITALS: BP 151/69
[2020-01-28] MEDS: ATORVASTATIN 20 MG TABLET PO SCH (20:26)
[2020-01-28] MEDS: URSODIOL 250 MG TABLET PO SCH (20:26)
[2020-01-29 01:48] VITALS: BP 171/76
[2020-01-29] MEDS: CEFTRIAXONE PMX 1GM/50ML 50 ML IV SCH ×2 (02:05→15:14)
[2020-01-29 07:08] VITALS: BP 178/78
[2020-01-29] MEDS: VENLAFAXINE XR 37.5MG CAP.ER.24H PO SCH (08:24)
[2020-01-29] MEDS: AMLODIPINE 5 MG TABLET PO SCH (08:24)
[2020-01-29] MEDS: DOCUSATE 100 MG CAPSULE PO SCH ×2 (08:24→19:43)
[2020-01-29] MEDS: CHOLECALCIFEROL 1,000 UNIT TABLET PO SCH (08:24)
[2020-01-29] MEDS: MULTIVITAMINS/MINERALS TABLET PO SCH (08:24)
[2020-01-29] MEDS: METOPROLOL SUCCINATE 50 MG TAB.ER.24H PO SCH (08:25)
[2020-01-29] MEDS: RIVAROXABAN 20 MG TABLET PO SCH (08:46)
[2020-01-29] MEDS: INSULIN LISPRO 100 UNITS/ML, PEN SQ-INSULIN SCH ×4 (08:49→21:07)
[2020-01-29 13:34] VITALS: BP 143/75
[2020-01-29 19:33] VITALS: BP 120/72
[2020-01-29] MEDS: OXYcodone IR 5MG TABLET PO PRN (19:43)
[2020-01-29] MEDS: URSODIOL 250 MG TABLET PO SCH (19:43)
[2020-01-29] MEDS: ATORVASTATIN 20 MG TABLET PO SCH (19:43)
[2020-01-30 01:21] VITALS: BP 162/80
[2020-01-30] MEDS: CEFTRIAXONE PMX 1GM/50ML 50 ML IV SCH ×2 (02:17→15:18)
[2020-01-30 07:20] VITALS: BP 151/70
[2020-01-30] MEDS: INSULIN LISPRO 100 UNITS/ML, PEN SQ-INSULIN SCH ×2 (07:49→11:53)
[2020-01-30] MEDS: CHOLECALCIFEROL 1,000 UNIT TABLET PO SCH (07:57)
[2020-01-30] MEDS: AMLODIPINE 5 MG TABLET PO SCH (07:57)
[2020-01-30] MEDS: METOPROLOL SUCCINATE 50 MG TAB.ER.24H PO SCH (07:57)
[2020-01-30] MEDS: DOCUSATE 100 MG CAPSULE PO SCH (07:57)
[2020-01-30] MEDS: VENLAFAXINE XR 37.5MG CAP.ER.24H PO SCH (07:58)
[2020-01-30] MEDS: OXYcodone IR 5MG TABLET PO PRN ×2 (07:58→12:49)
[2020-01-30] MEDS: MULTIVITAMINS/MINERALS TABLET PO SCH (07:58)
[2020-01-30] MEDS: RIVAROXABAN 20 MG TABLET PO SCH (08:01)
[2020-01-30 15:34] VITALS: BP 155/70
== END 2020-01-30 16:30 | DRG 480 ==
LOC: ED 21:14 → EDIP 01-18 00:01 → 4NE 01-18 00:23 → 5SO 01-20 09:56 → 4NW 01-22 15:23
PROVIDERS: ADMIT Family Medicine; ATTEND Family Medicine
PROC: 0QS706Z Reposition Left Upper Femur with Intramedullary Internal Fixation Device, Open Approach (ICD-10-PCS; principal; 2020-01-18 16:15)
PROC: 0T9B30Z Drainage of Bladder with Drainage Device, Percutaneous Approach (ICD-10-PCS; 2020-01-24)
DX: S72.142A Displaced intertrochanteric fracture of left femur, initial encounter for closed fracture (principal); G93.41 Metabolic encephalopathy; N39.0 Urinary tract infection, site not specified; J81.1 Chronic pulmonary edema; D69.6 Thrombocytopenia, unspecified; F03.90 Unspecified dementia, unspecified severity, without behavioral disturbance, psychotic disturbance, mood disturbance, and anxiety; F32.9 Major depressive disorder, single episode, unspecified; D50.0 Iron deficiency anemia secondary to blood loss (chronic); M81.0 Age-related osteoporosis without current pathological fracture; K74.3 Primary biliary cirrhosis; K21.9 Gastro-esophageal reflux disease without esophagitis; E11.65 Type 2 diabetes mellitus with hyperglycemia; J44.9 Chronic obstructive pulmonary disease, unspecified; K59.00 Constipation, unspecified; I10 Essential (primary) hypertension; Y93.01 Activity, walking, marching and hiking; W10.9XXA Fall (on) (from) unspecified stairs and steps, initial encounter; Z20.828 Contact with and (suspected) exposure to other viral communicable diseases; Z86.718 Personal history of other venous thrombosis and embolism; Z79.84 Long term (current) use of oral hypoglycemic drugs; Z88.5 Allergy status to narcotic agent; Z88.6 Allergy status to analgesic agent; Z91.041 Radiographic dye allergy status; Z87.01 Personal history of pneumonia (recurrent); Y92.89 Other specified places as the place of occurrence of the external cause; Y99.8 Other external cause status
CPT/HCPCS: 36415; 70450; 71045; 71275; 76000; 76705; 80048; 80053; 81001; 82565; 82962; 83036; 83735; 84145; 84484; 85025; 85610; 85730; 87040; 87086; 87635; 93005; 96374; 96375; 96376; 99285; C1713; G0378; J0690; J0696; J1100; J1170; J1644; J1885; J2405; J2704; J3010; Q9967; 92523-GN; J0330; J1450; J1815; J1940; J7030; J7040; J7120